=== PATIENT | male | born 1995 | race Caucasian/White ===

== ENCOUNTER 2019-04-23 09:00 | Emergency (ER) | payer BC ==
[~2019-04-23] VITALS: Ht 188 cm; Wt 104.3 kg
[2019-04-23 09:00] VITALS: BP 147/91
--- NOTE | 2019-04-23 09:34 | RAD ---
Examination: FOOT RIGHT 3V History: Work injury after heavy abdomen was dropped on the foot. Pain. Comparison/Correlation: None Findings: Total 3 images of the right foot were obtained. Joint spaces are normal. No acute fracture or bony destruction. Soft tissue swelling along the dorsal aspect of the foot is present. Curvilinear lucency at the fifth metatarsal base on the oblique view is present but probably artifactual. No corresponding finding evident on other images provided. Subtle sclerosis of the navicular bone at the dorsal aspect is present and nonspecific. Impression: No definite fracture. Consider further imaging if occult process is a persistent concern. Electronically signed by: Jeremy Salinas MD (04/23/2019 9:30 AM) [id number]
--- NOTE | 2019-04-23 09:53 | PHYS DOC ---
Past History Past Medical History: No Pertinent History Past Surgical History: No Surgical History Alcohol Use: Occasionally Drug Use: None Adult General Chief Complaint Chief Complaint: FOOT INJURY PAIN [facility] HPI Patient is a 23-year-old male who presents with pain and injury to his right foot after he reportedly dropped a fork lift boom onto his right foot. Patient rates pain as moderate in indicates the pain is worsened with weightbearing. He denies any other injuries. Injury occurred just prior to his arrival while at work.[] Review of Systems Review of Systems Constitutional: Denies fever or chills [] Respiratory: Denies cough or shortness of breath [] Cardiovascular: No additional information not addressed in HPI [] Musculoskeletal: Positive right foot pain [] Physical Exam Physical Exam Constitutional: Well developed, well nourished, no acute distress, non-toxic appearance. [] HENT: Normocephalic, atraumatic. [] Skin: Warm, dry, no erythema, no rash. [] Extremities: Examination of right foot demonstrates moderate soft tissue swelling primarily to the dorsum of the foot with some ecchymosis with diffuse tenderness to palpation. [] Current Patient Data Vital Signs Vital Signs Date Time Temp Pulse Resp B/P (MAP) Pulse Ox O2 Delivery O2 Flow Rate FiO2 04/23/19 09:00 98.4 115 16 98 Room Air EKG EKG [] Radiology/Procedures Radiology/Procedures [] Impressions: PROCEDURE: FOOT RIGHT 3V Examination: FOOT RIGHT 3V History: Work injury after heavy abdomen was dropped on the foot. Pain. Comparison/Correlation: None Findings: Total 3 images of the right foot were obtained. Joint spaces are normal. No acute fracture or bony destruction. Soft tissue swelling along the dorsal aspect of the foot is present. Curvilinear lucency at the fifth metatarsal base on the oblique view is present but probably artifactual. No corresponding finding evident on other images provided. Subtle sclerosis of the navicular bone at the dorsal aspect is present and nonspecific. Impression: No definite fracture. Consider further imaging if occult process is a persistent concern. Electronically signed by: Jeremy Salinas MD (04/23/2019 9:30 AM) [id number] Course & Med Decision Making Course & Med Decision Making Pertinent Labs and Imaging studies reviewed. (See chart for details) [] Dragon Disclaimer Dragon Disclaimer This electronic medical record was generated, in whole or in part, using a voice recognition dictation system. Departure Departure: Impression: Primary Impression: Contusion of right foot, initial encounter Disposition: HOME, SELF-CARE Condition: STABLE Referrals: [facility] (PCP) Patient Instructions: Foot Contusion Additional Instructions: Wear postop shoe as needed for comfort. You may take [id number] Tylenol or ibuprofen as needed for pain. I would recommend rest, ice and elevation to affected foot. ANDREW NELSON Jr. DO Apr 23, 2019 09:53
== END 2019-04-23 10:00 | disposition home or self-care (01) ==
LOC: ER 09:00
DX: S90.31XA Contusion of right foot, initial encounter (principal); W20.8XXA Other cause of strike by thrown, projected or falling object, initial encounter; Y93.89 Activity, other specified; Y92.89 Other specified places as the place of occurrence of the external cause; Y99.8 Other external cause status
CPT/HCPCS: 73630; 99284